=== PATIENT | male | born 2000 | race Caucasian/White ===

== ENCOUNTER 2019-07-17 09:04 | Inpatient (IN) | payer OTHER ==
[~2019-07-17] VITALS: Ht 177.8 cm; Wt 64.8 kg
[~2019-07-17 09:04] MED LIST: EPINEPHRINE SYRINGE 0.1 MG/ML, 10ML ONE; HYDR10SY14 PO
[2019-07-17] MEDS ORDERED: ATROPINE SYRINGE 0.1 MG/ML, 10ML ONE (09:05)
[2019-07-17] MEDS ORDERED: SODIUM BICARB 8.4%, 50ML SYRINGE ONE ×3 (09:05→14:48)
[2019-07-17] MEDS ORDERED: DEXTROSE 5% ONE (09:05)
[2019-07-17] MEDS ORDERED: EPINEPHRINE SYRINGE 0.1 MG/ML, 10ML ONE (09:05)
[2019-07-17] MEDS ORDERED: EPINEPHRINE 5 MG in SODIUM CHLORIDE 0.9% 245 ML IV PRN ×2 (09:30→14:00)
[2019-07-17] MEDS ORDERED: SODIUM CHLORIDE 0.9% 1,000ML IVBOLUS ONE (09:30)
[2019-07-17] MEDS ORDERED: SODIUM CHLORIDE FLUSH 10ML SYR IVF ONE (09:30)
[2019-07-17] MEDS ORDERED: KETAMINE 10 MG/ML, 20ML ONE (10:00)
[2019-07-17] MEDS ORDERED: SODIUM BICARBONATE 8.4% 150 MEQ in DEXTROSE 5% 1,000 ML IV SCH ×2 (10:00→11:30)
[2019-07-17] MEDS ORDERED: AMPICILLIN/SULBACTAM 3 GM in SODIUM CHLORIDE 0.9% 100 ML IV ONE (10:00)
[2019-07-17 10:02] LABS: MEAN CORPUSCULAR HEMOGLOBIN 28.7 pg (27.5-34.5); MEAN CORPUSCULAR HGB CONC 31.4 g/dL (33.2-36.2); MEAN CORPUSCULAR VOLUME 91.4 fL (81-97); MEAN PLATELET VOLUME 8.3 fL (7.4-10.4); PLATELET COUNT 139 x10^3/uL (130-400)
[2019-07-17 10:03] LABS: INTERNATIONAL NORMALIZED RATIO 1.48 (0.93-1.1); PROTHROMBIN TIME 15.8 Seconds (9.6-11.5)
[2019-07-17] MEDS ORDERED: KETAMINE 10 MG/ML, 20ML IV ONE (10:05)
[2019-07-17] MEDS ORDERED: MIDAZOLAM HCL 50 MG in SODIUM CHLORIDE 0.9% 40 ML IV PRN ×4 (10:20→13:01)
[2019-07-17 10:21] LABS: BASOPHILS # (AUTO) 0.04 x10^3/uL (0-0.3); BASOPHILS % (AUTO) 0 % (0-1); EOSINOPHILS # (AUTO) 0.03 x10^3/uL (0-0.8); EOSINOPHILS % (AUTO) 0 % (1-7); LYMPHOCYTES # (AUTO) 5.74 x10^3/uL (1-6.1); LYMPHOCYTES % (AUTO) 46 % (22-44); MD SCAN; MONOCYTES # (AUTO) 0.16 x10^3/uL (0-1.4); MONOCYTES % (AUTO) 1 % (2-9); NEUTROPHILS # (AUTO) 6.54 x10^3/uL (1.8-8.0); NEUTROPHILS % (AUTO) 52 % (42-75)
[2019-07-17] MEDS ORDERED: KETAMINE 100 MG/ML, 5ML IV ONE (10:30)
[2019-07-17 10:57] LABS: ALANINE AMINOTRANSFERASE 576 U/L (12-78); ALBUMIN 2.8 g/dL (3.4-5.0); ANION GAP 22 mmol/L (5-15); CALCIUM 8.3 mg/dL (8.5-10.1); CHLORIDE 100 mmol/L (98-107); CREATININE 3.14 mg/dL (0.7-1.3); SALICYLATE LEVEL < 1.7 mg/dL (2.8-20.0)
[2019-07-17] MEDS ORDERED: KETAMINE 100 MG in SODIUM CHLORIDE 0.9% 99 ML IV PRN (11:00)
[2019-07-17 11:06] LABS: ALKALINE PHOSPHATASE 83 U/L (45-117); BILIRUBIN,TOTAL 0.7 mg/dL (0.2-1.0); TOTAL PROTEIN 5.9 g/dL (6.4-8.2)
[2019-07-17 11:08] LABS: FIO2 100 %
[2019-07-17 11:13] VITALS: BP 136/107
[2019-07-17] MEDS ORDERED: THIAMINE 200 MG in SODIUM CHLORIDE 0.9% 50 ML IV SCH (11:30)
[2019-07-17] MEDS ORDERED: ONDANSETRON 2MG/ML, 2ML IVPush PRN (11:30)
[2019-07-17] MEDS ORDERED: AMIODARONE 450 MG in DEXTROSE 5% 241 ML IV PRN (11:30)
[2019-07-17] MEDS ORDERED: FILTER 0.22 MICRON IV PRN (12:30)
[2019-07-17] MEDS ORDERED: LIDOCAINE-MPF 1%, 2ML ENDO PRN (13:00)
[2019-07-17] MEDS ORDERED: PHARMACY MAY ADJ FOR RENAL FX MC SCH (13:00)
[2019-07-17] MEDS ORDERED: SENNA/DOCUSATE TABLET NG PRN (13:00)
[2019-07-17] MEDS ORDERED: LACTULOSE 20 GM/30 ML UDC NG PRN (13:00)
[2019-07-17] MEDS ORDERED: FENTANYL PF 100 MCG/2ML IVPush PRN (13:00)
[2019-07-17] MEDS ORDERED: SENNA 176 MG/5 ML ORAL SOL NG PRN (13:00)
[2019-07-17] MEDS ORDERED: BISACODYL 10 MG SUPP PR PRN (13:00)
[2019-07-17] MEDS ORDERED: VECURONIUM 10 MG IVPush PRN (13:30)
[2019-07-17] MEDS ORDERED: ARTIFICIAL TEARS OINT 3.5 GM EACHEYE PRN (13:30)
--- NOTE | 2019-07-17 13:35 | NUR ---
HYPOTHERMIA PROTOCOL STARTED 5074
--- NOTE | 2019-07-17 13:35 | NUR ---
SEE PAPER CHARTING FOR CODE X2
[2019-07-17] MEDS ORDERED: NOREPINEPHRINE 1 MG/ML, 4ML ONE (13:38)
[2019-07-17] MEDS ORDERED: AMPICILLIN/SULBACTAM 3 GM in SODIUM CHLORIDE 0.9% 100 ML IV SCH (14:00)
[2019-07-17] MEDS: HEPARIN 5,000 UNITS/ML, 1ML SQ SCH ×2 (14:22→19:27)
[2019-07-17] MEDS ORDERED: REGULAR INSULIN 100 UNITS in SODIUM CHLORIDE 0.9% 99 ML IV PRN (14:30)
[2019-07-17] MEDS ORDERED: INSULIN INFUSION FOR ICU PROTOCOL XX PRN (14:30)
[2019-07-17] MEDS ORDERED: NOREPINEPHRINE 8 MG in SODIUM CHLORIDE 0.9% 242 ML IV PRN (14:30)
[2019-07-17] MEDS ORDERED: STERILE WATER IV SCH (15:00)
[2019-07-17] MEDS ORDERED: SODIUM BICARBONATE IV SCH (15:00)
[2019-07-17] MEDS ORDERED: SODIUM BICARBONATE 8.4% 200 MEQ in DEXTROSE 5% 1,000 ML IV SCH (15:00)
[2019-07-17] MEDS ORDERED: VASOPRESSIN 20 UNIT in SODIUM CHLORIDE 0.9% 99 ML IV PRN (15:00)
[2019-07-17] MEDS ORDERED: EPINEPHRINE 1 MG/ML, 1ML ONE (15:19)
[2019-07-17] MEDS ORDERED: EPINEPHRINE 10 MG in SODIUM CHLORIDE 0.9% 240 ML IV PRN (15:30)
[2019-07-17] MEDS ORDERED: NOREPINEPHRINE 32 MG in SODIUM CHLORIDE 0.9% 218 ML IV PRN (15:30)
[2019-07-17 15:37] LABS: MICROSCOPIC INDICATED
[2019-07-17 15:42] LABS: CULTURE INDICATED? NO
[2019-07-17 16:07] LABS: AMPHETAMINE SCREEN, URINE Negative (Negative); BARBITURATE SCREEN, URINE Negative (Negative); BENZODIAZEPINE SCREEN, URINE Positive (Negative); CANNABINOID SCREEN, URINE Positive (Negative); COCAINE SCREEN, URINE Positive (Negative); METHADONE SCREEN, URINE Negative (Negative); OPIATE SCREEN, URINE Negative (Negative)
[2019-07-17] MEDS ORDERED: LORazepam 2 MG/ML, 1ML ONE (17:34)
[2019-07-17] MEDS ORDERED: morphine SULFATE 10 MG/ML, 1ML ONE (17:34)
[2019-07-18] MEDS ORDERED: PANTOPRAZOLE 40 MG IV IVPush SCH (07:30)
[2019-07-18] MEDS ORDERED: SODIUM BICARBONATE 8.4% 150 MEQ in DEXTROSE 5% 1,000 ML IV SCH (11:30)
[2019-07-18] MEDS ORDERED: EPINEPHRINE 5 MG in SODIUM CHLORIDE 0.9% 245 ML IV PRN (14:00)
== END 2019-07-17 18:10 | disposition expired | DRG 871 ==
LOC: ED 09:48 → EDIP 10:43 → SUATTDRO 11:04 → CCU 12:11
PROVIDERS: ADMIT Internal Medicine; ATTEND Internal Medicine
PROC: 5A1935Z Respiratory Ventilation, Less than 24 Consecutive Hours (ICD-10-PCS; principal; 2019-07-17)
PROC: 0BH17EZ Insertion of Endotracheal Airway into Trachea, Via Natural or Artificial Opening (ICD-10-PCS; 2019-07-17)
PROC: 5A12012 Performance of Cardiac Output, Single, Manual (ICD-10-PCS; 2019-07-17)
PROC: 5A2204Z Restoration of Cardiac Rhythm, Single (ICD-10-PCS; 2019-07-17)
PROC: 0T9B70Z Drainage of Bladder with Drainage Device, Via Natural or Artificial Opening (ICD-10-PCS; 2019-07-17)
DX: A41.9 Sepsis, unspecified organism (principal); G92 Toxic encephalopathy; J69.0 Pneumonitis due to inhalation of food and vomit; J96.01 Acute respiratory failure with hypoxia; N17.0 Acute kidney failure with tubular necrosis; B19.10 Unspecified viral hepatitis B without hepatic coma; E87.4 Mixed disorder of acid-base balance; Z99.11 Dependence on respirator [ventilator] status; E88.09 Other disorders of plasma-protein metabolism, not elsewhere classified; F10.10 Alcohol abuse, uncomplicated; F12.10 Cannabis abuse, uncomplicated; F14.10 Cocaine abuse, uncomplicated; F32.9 Major depressive disorder, single episode, unspecified; F41.9 Anxiety disorder, unspecified; I49.01 Ventricular fibrillation; R65.20 Severe sepsis without septic shock; R57.0 Cardiogenic shock; Z51.5 Encounter for palliative care; Z91.5 Personal history of self-harm
CPT/HCPCS: 31500; 36415; 36556; 36600; 71045; 80053; 80307; 81001; 82330; 82803; 82962; 83050; 83605; 83735; 84100; 84132; 84145; 84443; 84478; 84484; 85025; 85610; 85730; 86705; 86706; 86803; 87040; 87070; 87081; 87205; 87340; 87806; 92950; 93005; 93306; 94002; 96361; 96374; 96375; 99292; G0378; J0295; J0461; J1644; J1815; J2250; J3411; J7060; J7070; G0475; J0282; J7030; J7050